=== PATIENT | male | born 1970 | race Caucasian/White ===

== ENCOUNTER 2016-08-12 11:59 | Emergency (ER) | payer BC ==
[2016-08-12 12:53] VITALS: BP 159/86
--- NOTE | 2016-08-12 13:15 | UC ---
Abdominal Pain Male HPI - HPI Summary HPI Summary: Nausea, intestinal cramping, chills, achiness starting yesterday. No vomiting or diarrhea. Generalized abdominal pain. - History of Current Complaint Chief Complaint: UCGI Stated Complaint: FLU SYMPTOMS Time Seen by Provider: 08/12/16 12:53 Hx Obtained From: Patient Onset/Duration: Gradual Onset, Lasting Hours Timing: Constant Severity Initially: Mild Severity Currently: Moderate Location: Diffuse Radiates: No Character: Cramping Aggravating Factor(s):: Food, Movement Alleviating Factor(s): Rest Associated Signs And Symptoms: Positive: Decreased Appetite, Nausea. Negative: Back Pain, Constipation, Urinary Symptoms, Vomiting, Diarrhea - Allergies/Home Medications Allergies/Adverse Reactions: Allergies Allergy/AdvReac Type Severity Reaction Status Date / Time No Known Allergies Allergy Verified 08/12/16 12:47 PMH/Surg Hx/FS Hx/Imm Hx Endocrine History Of: Denies: Diabetes, Thyroid Disease Cardiovascular History Of: Denies: Cardiac Disorders, Hypertension Respiratory History Of: Denies: COPD, Asthma GI/ History Of: Denies: Ulcer - Surgical History Surgical History: Yes Surgery Procedure, Year, and Place: left arm fracture that was repaired surgically - Family History Known Family History: Positive: Cardiac Disease - Social History Alcohol Use: None Substance Use Type: None Smoking Status (MU): Former Smoker Type: Cigarettes Amount Used/How Often: 1/2 PPD Length of Time of Smoking/Using Tobacco: 24 Years Have You Smoked in the Last Year: No When Did the Patient Quit Smoking/Using Tobacco: ~2014 Household Exposure Type: Cigarettes - Immunization History Most Recent Influenza Vaccination: Not the Season Review of Systems Constitutional: Negative Skin: Negative Eyes: Negative ENT: Negative Respiratory: Negative Cardiovascular: Negative Gastrointestinal: Abdominal Pain Genitourinary: Negative Motor: Negative Neurovascular: Negative Musculoskeletal: Negative Neurological: Negative Psychological: Negative All Other Systems Reviewed And Are Negative: Yes Physical Exam Triage Information Reviewed: Yes Appearance: Well-Appearing, No Pain Distress, Obese Vital Signs: Initial Vital Signs Temp 99.5 F 08/12/16 12:48 Pulse 100 08/12/16 12:48 Resp 18 08/12/16 12:48 BP 159/86 08/12/16 12:48 Pulse Ox 100 08/12/16 12:48 Vital Signs Reviewed: Yes Eye Exam: Normal Eyes: Positive: Conjunctiva Clear ENT Exam: Normal ENT: Positive: Normal ENT inspection, Hearing grossly normal, Pharynx normal, TMs normal Dental Exam: Normal Neck exam: Normal Neck: Positive: Supple, Nontender, No Lymphadenopathy Respiratory Exam: Normal Respiratory: Positive: Chest non-tender, Lungs clear, Normal breath sounds, No respiratory distress, No accessory muscle use Cardiovascular Exam: Normal Cardiovascular: Positive: RRR, No Murmur Abdomen Description: Positive: No Organomegaly, Soft, Other: - mild diffuse tenderness, no focal tenderness. Negative: Bruit, CVA Tenderness (R), CVA Tenderness (L) Musculoskeletal Exam: Normal Neurological Exam: Normal Psychological Exam: Normal Skin Exam: Normal Abd Pain Male Course/Dx - Differential Dx/Clinical Impression Provider Diagnoses: acute gastroenteritis Discharge - Discharge Plan Condition: Stable Disposition: HOME Prescriptions: Ondansetron ODT TAB* [Zofran Odt TAB*] 4 mg PO Q6H PRN #8 tab.odt PRN Reason: Nausea Patient Education Materials: Gastroenteritis (ED) Forms: *Work Release Referrals: Cecilio Briones MD [Primary Care Provider] - If Needed Additional Instructions: Call or return if you have vomiting longer than 3 days, diarrhea (more than 4 times per day) longer than 5 days, blood in vomit or stool, or if you develop worsening abdominal pains.
== END 2016-08-12 13:13 | disposition home or self-care (01) ==
LOC: UCCORT 11:59
DX: K52.9 Noninfective gastroenteritis and colitis, unspecified (principal); F17.210 Nicotine dependence, cigarettes, uncomplicated
CPT/HCPCS: 99212; G0463

== ENCOUNTER 2017-05-02 14:42 | Emergency (ER) | payer BC, OTHER ==
--- NOTE | 2017-05-02 14:52 | UC ---
Lower Extremity/Ankle HPI - HPI Summary HPI Summary: 46 YEAR OLD FEMALE PRESENTS WITH COMPLAINS OF RIGHT CALF PAIN/SWELLING/ ECHYMOSIS. I WILL SEND HIM TO ER TO RULE OUT DVT/COMPARTMENT SYNDROME/ACHILLES TEAR. - History of Current Complaint Stated Complaint: RIGHT LEG INJURY WC Time Seen by Provider: 05/02/17 14:51 Hx Obtained From: Patient Onset/Duration: Sudden Onset Severity Initially: Moderate Severity Currently: Moderate Pain Scale Used: 0-10 Numeric - 10 - Allergies/Home Medications Allergies/Adverse Reactions: Allergies Allergy/AdvReac Type Severity Reaction Status Date / Time No Known Allergies Allergy Verified 05/02/17 14:55 Home Medications: Home Medications NK [No Home Medications Reported] 05/02/17 [History Confirmed 05/02/17] PMH/Surg Hx/FS Hx/Imm Hx Previously Healthy: Yes - Surgical History Surgical History: Yes Surgery Procedure, Year, and Place: left arm fracture that was repaired surgically - Family History Known Family History: Positive: Cardiac Disease - Social History Alcohol Use: None Substance Use Type: None Smoking Status (MU): Former Smoker Type: Cigarettes Amount Used/How Often: 1/2 PPD Length of Time of Smoking/Using Tobacco: 24 Years Have You Smoked in the Last Year: No When Did the Patient Quit Smoking/Using Tobacco: ~2013 Household Exposure Type: Cigarettes - Immunization History Most Recent Influenza Vaccination: Not the 2015/2016 Season Review of Systems Constitutional: Negative Skin: Negative Eyes: Negative ENT: Negative Respiratory: Negative Cardiovascular: Negative Gastrointestinal: Negative Genitourinary: Negative Motor: Negative Neurovascular: Negative Musculoskeletal: Decreased ROM, Other: - RIGHT CALF PAIN Neurological: Negative Psychological: Negative All Other Systems Reviewed And Are Negative: Yes Physical Exam Triage Information Reviewed: Yes Vital Signs Reviewed: Yes Eye Exam: Normal ENT Exam: Normal Dental Exam: Normal Neck exam: Normal Neck: Positive: 1 Respiratory Exam: Normal Cardiovascular Exam: Normal Abdominal Exam: Normal Musculoskeletal: Positive: Strength Limited @, ROM Limited @, Other: - RIGHT CALF PAIN Neurological Exam: Normal Psychological Exam: Normal Skin Exam: Normal Lower Extremity Course/Dx - Differential Dx/Diagnosis Provider Diagnoses: RIGHT CALF PAIN/SWELLING/BRUISING Discharge - Discharge Plan Condition: Stable Disposition: HOME Patient Education Materials: Achilles Tendon Rupture (ED), Leg Pain (ED) Referrals: Cecilio Briones MD [Primary Care Provider] - Additional Instructions: PLEASE GO TO ER FOR SEVERE RIGHT CALF SWELLING.
[2017-05-02 14:55] VITALS: BP 147/89
--- NOTE | 2017-05-02 17:36 | RAD ---
INDICATION: Right ankle pain. TECHNIQUE: 3 views of the right ankle were obtained. FINDINGS: The bones are in normal alignment. No fracture is seen. Joint spaces appear maintained. IMPRESSION: NO EVIDENCE FOR FRACTURE.
--- NOTE | 2017-05-02 17:37 | RAD ---
INDICATION: Right lower leg injury. TECHNIQUE: 2 views of the right lower leg were obtained. FINDINGS: The bones are normal alignment. No fracture is seen. IMPRESSION: NO EVIDENCE OF FRACTURE.
== END 2017-05-02 15:25 | disposition home or self-care (01) ==
LOC: UCCORT 14:42
DX: S80.11XA Contusion of right lower leg, initial encounter (principal); M79.89 Other specified soft tissue disorders; M79.661 Pain in right lower leg; X58.XXXA Exposure to other specified factors, initial encounter; Y93.9 Activity, unspecified; Y92.89 Other specified places as the place of occurrence of the external cause; Y99.0 Civilian activity done for income or pay; Z87.891 Personal history of nicotine dependence
CPT/HCPCS: 99212; G0463

== ENCOUNTER 2017-05-02 19:05 | Observation (INO) | payer SELFPAY ==
[2017-05-02] MEDS ORDERED: oxyCODONE/Acetamin 5/325 MG* TAB PO ONE (20:22)
--- NOTE | 2017-05-02 21:44 | RAD ---
INDICATION: Right calf swelling evaluate for muscle tear. COMPARISON: Comparison is made with a prior x-ray study of the right lower leg of the same date. TECHNIQUE: Multiple real-time images of the right calf were obtained. FINDINGS: There is a large hypoechoic area in the posterior calf in the deep soft tissues deep to the calf muscle. This measures 15.7 x 6.2 x 3.5 cm and would be most consistent with a large hematoma. IMPRESSION: FINDINGS MOST CONSISTENT WITH A LARGE HEMATOMA IN THE SOFT TISSUES IN THE POSTERIOR CALF DESCRIBED.
[2017-05-02 22:52] LABS: Hematocrit 43 % (42-52); Hemoglobin 14.5 g/dl (14.0-18.0); Mean Corpuscular HGB Conc 34 g/dl (31-36); Mean Corpuscular Hemoglobin 28 pg (27-31); Mean Corpuscular Volume 83 fL (80-94); Mean Platelet Volume 9 um3 (7.4-10.4); Red Blood Count 5.15 10^6/ul (4.0-5.4); Red Cell Distribution Width 13 % (10.5-15); White Blood Count 13.6 10^3/ul (3.5-10.8)
[2017-05-02] MEDS ORDERED: ceFAZolin 2 GM PREMIX (*) 50 ML IVPB ONE (22:59)
[2017-05-02 23:02] LABS: Albumin 4.1 g/dL (3.2-5.2); BUN/Creatinine Ratio 24.1 (8-20); EGFR African American 127.2 (>60); EGFR Non-African American 98.9 (>60); Globulin 2.7 g/dL (2-4); Potassium 3.7 mmol/L (3.5-5.0); Total Bilirubin 0.6 mg/dL (0.2-1.0); Total Protein 6.8 g/dL (6.4-8.9)
[2017-05-02] MEDS ORDERED: Bupivacaine 0.5% SDV PF* 30 ML VIAL ONE (23:08)
[2017-05-02] MEDS ORDERED: fentaNYL* 50 MCG/ML 2 ML VIAL (100 MCG VIAL) ONE ×2 (23:14→23:44)
[2017-05-02] MEDS ORDERED: Midazolam* 1 MG/ML 2 ML VIAL (2 MG) ONE (23:14)
[2017-05-02] MEDS ORDERED: Ondansetron INJ* 2 MG/ML VIAL ONE (23:31)
[2017-05-02] MEDS ORDERED: Dexamethasone IV* 4 MG/ML 1 ML (4 MG) ONE (23:31)
[2017-05-02] MEDS ORDERED: Propofol* 10 MG/ML 20 ML BTL IV PUSH ONE ×2 (23:31→23:54)
[2017-05-02] MEDS ORDERED: Succinylcholine* 20 MG/ML 10 ML VIAL ONE (23:31)
[2017-05-02] MEDS ORDERED: Lidocaine 2% PF * 5 ML VIAL ONE (23:31)
[2017-05-03] MEDS ORDERED: Levalbuterol HFA INHALER* 1 PUFF MDI ONE (00:15)
[2017-05-03] MEDS ORDERED: Morphine INJ* 2 MG/ML 1 ML CARPUJECT IV PRN (00:17)
[2017-05-03] MEDS ORDERED: oxyCODONE/Acetamin 5/325 MG* TAB PO PRN (00:17)
[2017-05-03] MEDS ORDERED: diPHENhydraMINE IV* 50 MG/ML 1 ml VIAL (BENADRYL) IV PRN (00:17)
[2017-05-03] MEDS ORDERED: Acetaminophen TAB* 325 MG PO PRN ×2 (00:17→00:21)
[2017-05-03] MEDS ORDERED: Ibuprofen TAB* 600 MG PO PRN (00:21)
[2017-05-03] MEDS ORDERED: HYDROmorphone INJ* 1 MG/ML CARPUJECT SYRINGE IV PRN (00:21)
[2017-05-03] MEDS ORDERED: fentaNYL* 50 MCG/ML 2 ML VIAL (100 MCG VIAL) ONE (00:32)
[2017-05-03] MEDS: fentaNYL* 50 MCG/ML 2 ML VIAL (100 MCG VIAL) IV PRN ×4 (00:33→00:57)
[2017-05-03] MEDS ORDERED: Ibuprofen TAB* 600 MG ONE (01:16)
--- NOTE | 2017-05-03 01:34 | ED ---
Lower Extremity - HPI Summary HPI Summary: 46 y/o male at 2PM was pushing maria esther up ramp, felt snap sensation at posterior ankle that radiated up to posterior calf. Immediate pain, unable to walk due to pain, was seen at , sent to ER for DVT/ compartment syndrome. Patient refused to walk due to pain, states swelling/ pain has increased. vicodin at ~ 3PM, took edge off pain however pain continues and is increasing. No prior episodes, no prior injuries. no h/o dvt blood clots. - History of Current Complaint Chief Complaint: EDExtremityLower Stated Complaint: RT LEG PAIN Time Seen by Provider: 05/02/17 20:01 Hx Obtained From: Patient Mechanism Of Injury: Other - no injury Onset of Pain: Immediate, Hours, Post Accident Onset/Duration: Hours Severity Initially: Severe Severity Currently: Severe Pain Intensity: 7 Pain Scale Used: 0-10 Numeric - Allergies/Home Medications Allergies/Adverse Reactions: Allergies Allergy/AdvReac Type Severity Reaction Status Date / Time No Known Allergies Allergy Verified 05/02/17 19:20 PMH/Surg Hx/FS Hx/Imm Hx Previously Healthy: Yes Endocrine/Hematology History: Denies: Hx Diabetes, Hx Thyroid Disease Cardiovascular History: Denies: Hx Hypertension Respiratory History: Denies: Hx Asthma, Hx Chronic Obstructive Pulmonary Disease (COPD) GI History: Denies: Hx Ulcer - Surgical History Surgery Procedure, Year, and Place: left arm fracture that was repaired surgically - Immunization History Immunizations Up to Date: Yes Infectious Disease History: No Infectious Disease History: Denies: Hx Hepatitis, Hx Human Immunodeficiency Virus (HIV), Traveled Outside the [place] in Last 30 Days - Family History Known Family History: Positive: Cardiac Disease - Social History Alcohol Use: None Substance Use Type: Reports: None Smoking Status (MU): Light Every Day Tobacco Smoker Type: Cigarettes Amount Used/How Often: 1/2 PPD Length of Time of Smoking/Using Tobacco: 24 Years Have You Smoked in the Last Year: No Review of Systems Positive: Arthralgia, Myalgia, Decreased ROM, Edema - RIGHT calf All Other Systems Reviewed And Are Negative: Yes Physical Exam Triage Information Reviewed: Yes Vital Signs On Initial Exam: Initial Vitals Temp Pulse Resp BP Pulse Ox 97.8 F 74 16 141/76 97 05/02/17 19:15 05/02/17 19:15 05/02/17 19:15 05/02/17 19:15 05/02/17 19:15 Vital Signs Reviewed: Yes Appearance: Positive: Well-Appearing, Well-Nourished, Pain Distress - mild at rest, severe with movement of right leg Skin: Positive: Warm, Other - right foot slightly pale when compared with Left foot, PT/ DP 2+ b/l, Right foot slightly cooler than left foot. passive ROM of great toe, ankle has extreme pain in posterior calf. non-tender over achillies , neg achilies test. + firm, hard, woody feeling of Right calf. left soft, nontender. no tenderness over right knee. Head/Face: Positive: Normal Head/Face Inspection Musculoskeletal: Positive: Edema Right - sevre edema right calf.. Negative: Strength/ROM Intact - decreased ROM of R ankle due to radiating pain to calf. Neurological: Positive: Normal, Sensory/Motor Intact, Alert, Oriented to Person Place, Time, CN Intact II-III, Abnormal Gait - refuses to walk due to pain Psychiatric: Positive: Normal AVPU Assessment: Alert - [place] Coma Scale Coma Scale Total: 15 Diagnostics - Vital Signs Vital Signs Temp Pulse Resp BP Pulse Ox 05/03/17 01:15 78 18 141/76 100 05/03/17 01:00 90 20 147/84 100 05/03/17 00:57 20 05/03/17 00:45 80 20 150/89 99 05/03/17 00:40 83 20 134/77 100 05/03/17 00:35 84 20 103/72 99 05/03/17 00:33 20 05/03/17 00:30 97.5 F 85 20 169/93 92 05/02/17 20:31 20 05/02/17 19:15 97.8 F 74 16 141/76 97 - Laboratory Lab Results: Lab Results 05/02/17 05/02/17 05/02/17 Range/Units 22:39 22:39 22:39 WBC 13.6 H (3.5-10.8) 10^3/ul RBC 5.15 (4.0-5.4) 10^6/ul Hgb 14.5 (14.0-18.0) g/dl Hct 43 (42-52) % MCV 83 (80-94) fL MCH 28 (27-31) pg MCHC 34 (31-36) g/dl RDW 13 (10.5-15) % Plt Count 264 (150-450) 10^3/ul MPV 9 (7.4-10.4) um3 Neut % (Auto) 62.6 (38-83) % Lymph % (Auto) 28.4 (25-47) % [place] % (Auto) 6.8 (1-9) % Eos % (Auto) 1.4 (0-6) % Baso % (Auto) 0.8 (0-2) % Absolute Neuts (auto) 8.5 H (1.5-7.7) 10^3/ul Absolute Lymphs (auto) 3.9 (1.0-4.8) 10^3/ul Absolute Monos (auto) 0.9 H (0-0.8) 10^3/ul Absolute Eos (auto) 0.2 (0-0.6) 10^3/ul Absolute Basos (auto) 0.1 (0-0.2) 10^3/ul Absolute Nucleated RBC 0 10^3/ul Nucleated RBC % 0 INR (Anticoag Therapy) 0.92 (0.89-1.11) APTT 30.2 (26.0-36.3) seconds Sodium 135 (133-145) mmol/L Potassium 3.7 (3.5-5.0) mmol/L Chloride 102 (101-111) mmol/L Carbon Dioxide 26 (22-32) mmol/L Anion Gap 7 (2-11) mmol/L BUN 20 (6-24) mg/dL Creatinine 0.83 (0.67-1.17) mg/dL Est GFR ( Amer) 127.2 (>60) Est GFR (Non-Af Amer) 98.9 (>60) BUN/Creatinine Ratio 24.1 H (8-20) Glucose 250 H (70-100) mg/dL Calcium 9.0 (8.6-10.3) mg/dL Total Bilirubin 0.60 (0.2-1.0) mg/dL AST 15 (13-39) U/L ALT 16 (7-52) U/L Alkaline Phosphatase 49 (34-104) U/L Total Protein 6.8 (6.4-8.9) g/dL Albumin 4.1 (3.2-5.2) g/dL Globulin 2.7 (2-4) g/dL Albumin/Globulin Ratio 1.5 (1-3) Result Diagrams: 05/02/17 22:39 05/02/17 22:39 Lab Statement: Any lab studies that have been ordered have been reviewed, and results considered in the medical decision making process. Lower Extremity Course/Dx - Course Course Of Treatment: consult to orthopedics/ Dr. Sarmiento placed, patient taken to OR for fasciotomy. radiograph neg for fx. - Diagnoses Differential Diagnosis/HQI/PQRI: Positive: Cellulitis, Compartment Syndrome Provider Diagnoses: Compartment syndrome of right lower extremity Discharge - Discharge Plan Condition: Guarded Disposition: ADMITTED TO [facility]
[2017-05-03] MEDS ORDERED: oxyCODONE/Acetamin 5/325 MG* TAB ONE (02:11)
[2017-05-03] MEDS: oxyCODONE/Acetamin 5/325 MG* TAB PO PRN ×3 (02:16→10:45)
[2017-05-03] MEDS ORDERED: ceFAZolin 1 GM VIAL(*) 1 GM in NS 0.9% 50 ML* 50 ML IVPB SCH (08:00)
[2017-05-03 09:08] VITALS: BP 149/86
--- NOTE | 2017-05-03 09:20 | PN ---
Progress Note - Progress Note Date of Service: 05/03/17 SOAP: Subjective: POD #0 Right leg fasciotomy for acute compartment syndrome. Pt doing well, pain controlled with Percocet. Denies C/P, SOB, f/c. Denies paresthesias or numbness in foot Objective: Vitals: Temp Pulse Resp BP Pulse Ox 97.7 F 99 17 149/86 97 05/03/17 07:34 05/03/17 07:34 05/03/17 07:34 05/03/17 07:34 05/03/17 08:30 Gen: A&Ox3, NAD at rest sitting in bed RLE: Dressing C/D/I, calf soft with diffuse ttp. +f/e at ankle and MTPs, DP 2+, sensation intact Assessment: POD #0 Right leg fasciotomy Plan: D/C home today F/u with Dr. Sarmiento in office Friday
--- NOTE | 2017-05-03 12:03 | OP ---
DATE OF OPERATION: 05/02/17 - ROOM #349 DATE OF : 66 SURGEON: Debbie Sarmiento MD. SCRAP WHEELER: SHERIF Ott ANESTHESIOLOGIST: Shy Ceron MD ANESTHESIA: General. PRE-OP DIAGNOSIS: Compartment syndrome on the right leg. POST-OP DIAGNOSIS: Compartment syndrome on the right leg. OPERATIVE PROCEDURE: Compartment release of right leg. ESTIMATED BLOOD LOSS: Zero. TOURNIQUET TIME: 19 minutes. INDICATIONS FOR PROCEDURE: Royce is a 46-year-old man who injured his right leg today. He has had increasing pain, swelling and tenderness in his right leg. X-ray was negative for fracture. Ultrasound showed a large hematoma. Clinically, he has a compartment syndrome with rock-hard compartments posterior , anterior and lateral. He presents for compartment release of the right leg. DESCRIPTION OF PROCEDURE: The patient was brought to the operating room, was given a general anesthetic and placed in a supine position on the operating table with a tourniquet around his right thigh. The skin of his right lower extremity was prepped and draped in the usual sterile fashion. The lower extremity was exsanguinated and the tourniquet elevated to 250 mmHg. A lateral longitudinal incision was made to gain access to the anterior and lateral compartments. These were both released and there was some bulging in the muscle , but the muscle was in excellent condition and contractile. Next, a medial longitudinal incision was made over the superficial posterior compartment and there was a very very large hematoma, which was evacuated. The muscle again was in good condition, contractile and we could see that the gastroc tendon distally had ruptured and retracted proximally. The deep posterior compartment was then released along the posterior aspect of the tibia. The wounds were copiously irrigated with saline. Hemostasis was achieved and the wounds were loosely closed with vessel loop and rosalino. The wounds were dressed with Xeroform, 4x4, ABD, Webril, and an Sameer wrap. The patient tolerated the procedure well and was brought to the recovery room in good condition. [id number]/[facility] #: [id number] [facility]
--- NOTE | 2017-05-03 12:44 | DS ---
AMENDED REPORT NOW INCLUDES COSIGNER DESIGNATION - ESIGNED BEFORE ADJUSTMENT DISCHARGE SUMMARY: DATE OF ADMISSION: 05/03/17 DATE OF DISCHARGE: 05/03/17 PROVIDER: Debbie Sarmiento MD * (DICTATED BY SHERIF MOLINA) ADMITTING DIAGNOSIS: Acute compartment syndrome of the right lower extremity. DISCHARGE DIAGNOSIS: Acute compartment syndrome of the right lower extremity, status post right leg fasciotomy. HISTORY OF PRESENT ILLNESS: Mr. Cao is a 46-year-old male who presented to [facility] Emergency Room on 05/02/17 with complaints of increasing right lower leg pain after he felt a pop in his calf while pushing a heavy cart up a ramp. He states that the pain and swelling steadily increased throughout the evening. He denied any paresthesias or numbness in the foot; however, he stated that the pain was out of control. Dr. Sarmiento was consulted on in the emergency room and the patient was found to have acute compartment syndrome. HOSPITAL COURSE: Dr. Sarmiento consulted on the patient in the emergency room. He was found to have acute compartment syndrome. He was taken immediately to the operating room and underwent a fasciotomy of the right lower leg. He was found to have a large hematoma and some tearing of the muscle fibers in the posterior calf. This was evacuated and irrigated thoroughly and partially closed using vascular loops and rosalino. A bulky dressing was applied over the patient's leg and he was taken to the recovery room. He was then transferred to the short -stay surgical unit in stable condition. He has been weightbearing as tolerated on the right lower extremity. He has been elevating frequently. He has had some pain; however, has been well controlled with oral pain medications only. He was found stable for discharge at that time. DISCHARGE INSTRUCTIONS: The patient is to elevate the leg frequently. He is to keep his dressing clean, dry and intact until followup with Dr. Sarmiento on 05/05/17. He was encouraged to move the foot frequently as well. DISCHARGE MEDICATIONS: He will continue Percocet 5/325 mg one to two tabs q.4 to 6 hours p.r.n. pain. He may also use ibuprofen 600 mg p.o. q.6 hours p.r.n. pain. He was encouraged to use Colace 100 mg p.o. b.i.d. over the counter as needed for constipation related to the stool softener. The patient was advised to call the office phone number with any questions or concerns and go directly to the emergency room with any chest pain, shortness of breath, fever greater than 101.5, numbness or tingling in his foot or any discoloration. All of his questions were answered to his full satisfaction. We will follow up with the patient in the office after discharge. SHERIF MOLINA [id number]/[facility] #: [id number] LASHONDA
== END 2017-05-03 11:07 | disposition home or self-care (01) ==
LOC: ED 19:05 → OR 22:38 → SSU 05-03 01:23
PROVIDERS: ADMIT Orthopaedic Surgery; ATTEND Orthopaedic Surgery
DX: T79.6XXA Traumatic ischemia of muscle, initial encounter (principal); X50.0XXA Overexertion from strenuous movement or load, initial encounter; Y92.89 Other specified places as the place of occurrence of the external cause; F17.210 Nicotine dependence, cigarettes, uncomplicated; K21.9 Gastro-esophageal reflux disease without esophagitis; E66.9 Obesity, unspecified; M79.604 Pain in right leg
CPT/HCPCS: 36415; 80053; 85025; 85610; 85730; 94760; 96365; 99282; A9270-GY; G0378; J0330; J0690; J1100; J2250; J2405; J2704; J3010

== ENCOUNTER 2017-07-17 18:50 | Emergency (ER) | payer BC, OTHER ==
[2017-07-17 19:46] VITALS: BP 167/91
--- NOTE | 2017-07-17 20:17 | UC ---
FLU HPI - HPI Summary HPI Summary: 46 year old male with fever and chills. c/o cold chills, body aches, head and neck ache. He has had a fever of 101.9. He does have some intermittent epigastric pain that feels like a burning, cramping sensation. He denies cough, cold sx. he did have skin bx on left front neck last week. He just stopped a weeks worth of Doxy yesterday. (before that he saw Dr Rosa for the same thing and he took a course of cefaclor). Several weeks ago he had surgery on his right leg, the incision looks good. Has had right leg surgery 04/30/17 and needed fasciotomy . no cough, no congestion, no headache, no arm numbness, no n/ v/d present. no NSAIDs per patient. also after getting punch biopsy has noticed some neck stiffness but not anywhere near the punch bx. has been to PT for the leg and desires to start for the neck . no neck trauma. [ End ] - History of Current Complaint Chief Complaint: UCGeneralIllness Stated Complaint: FLU LIKE SYMPTOMS Time Seen by Provider: 07/17/17 19:38 Hx Obtained From: Patient, Family/Bus Cleaner Onset/Duration: Gradual Onset Severity Currently: Mild Severity Initially: Moderate Associated Signs & Symptoms: Positive: Fever, T Max - 101.9, Myalgia Related Hx: Possible Flu/Infectious Exposure - Allergy/Home Medications Allergies/Adverse Reactions: Allergies Allergy/AdvReac Type Severity Reaction Status Date / Time No Known Allergies Allergy Verified 07/17/17 19:46 Home Medications: Home Medications Gabapentin CAP(*) [Neurontin 300 CAP(*)] 300 mg PO TID 07/17/17 [History Confirmed 07/17/17] PMH/Surg Hx/FS Hx/Imm Hx Previously Healthy: Yes - Surgical History Surgical History: Yes Surgery Procedure, Year, and Place: left arm fracture that was repaired surgically. Right lower leg fasciotomy - Family History Known Family History: Positive: Cardiac Disease - Social History Occupation: Employed Full-time Alcohol Use: Occasionally Substance Use Type: None Smoking Status (MU): Light Every Day Tobacco Smoker Type: Cigarettes Amount Used/How Often: 1/2 PPD Length of Time of Smoking/Using Tobacco: 24 Years Have You Smoked in the Last Year: No When Did the Patient Quit Smoking/Using Tobacco: ~2013 Household Exposure Type: Cigarettes - Immunization History Most Recent Influenza Vaccination: Not the 2015/2016 Season Most Recent Pneumonia Vaccination: N/A Review of Systems Constitutional: Fever, Chills, Fatigue Musculoskeletal: Arthralgia Is Patient Immunocompromised?: No All Other Systems Reviewed And Are Negative: Yes Physical Exam Triage Information Reviewed: Yes Appearance: Well-Appearing, No Pain Distress, Well-Nourished Vital Signs: Initial Vital Signs Temp 97.6 F 07/17/17 19:37 Pulse 107 07/17/17 19:37 Resp 14 07/17/17 19:37 BP 167/91 07/17/17 19:37 Pulse Ox 96 07/17/17 19:37 Vital Signs Reviewed: Yes Eye Exam: Normal ENT Exam: Normal Dental Exam: Normal Neck exam: Normal Respiratory Exam: Normal Cardiovascular Exam: Normal Abdominal Exam: Normal Abdomen Description: Positive: Soft, Other: - mild epigastric tenderness to palpation .. Negative: Bruit, CVA Tenderness (R), CVA Tenderness (L), Distended , Guarding, Hernia @, Hepatomegaly, McBurney's Point Tenderness, Peritoneal Signs, Pulsatile Mass, Splenomegaly Bowel Sounds: Positive: Present Musculoskeletal Exam: Normal Musculoskeletal: Positive: Strength Intact, ROM Intact - neg kernig. neg brud. FROM C spine. Neurological Exam: Normal Psychological Exam: Normal Skin Exam: Normal Skin: Positive: Other - healed wound right leg and left lateral neck with 1 suture present with round red raised 1x1 cm Flu Course/Dx - Course Course Of Treatment: finished doxy yesterday and fever today. restart doxy and f /u with PCP. flu neg. suture removed and no concerns and no bleeding. wound well approximated -- restart doxy at this time with the history of complications in the past few months . of note his neck has been more tight and likely from sleeping differently as he had the punch biopsy on the neck and desires PT for the neck. no loss of ROM. No trauma. no arm numbness. - Differential Dx/Diagnosis Provider Diagnoses: flu like illness , fever, neck pain Discharge - Discharge Plan Condition: Good Disposition: HOME Prescriptions: Doxycycline (Monohydrate) [Doxycycline Monohydrate] 100 mg PO BID #10 cap Patient Education Materials: Fever in Adults (ED) Referrals: Cecilio Briones MD [Primary Care Provider] - 4 Days Additional Instructions: Please start probiotics with the antibiotics. Please start PT for the neck pain. If fever worsens go to ED.
[2017-07-17] MEDS ORDERED: Doxycycline (NF) 100 MG TAB PO ONE (20:47)
[2017-07-17] MEDS ORDERED: DOXYcycline CAP(*) 100 MG PO ONE (20:52)
== END 2017-07-17 21:01 | disposition home or self-care (01) ==
LOC: UCCORT 18:50
DX: J11.1 Influenza due to unidentified influenza virus with other respiratory manifestations (principal); M54.2 Cervicalgia; F17.210 Nicotine dependence, cigarettes, uncomplicated
CPT/HCPCS: 87502; 99212; A9270-GY; G0463

== ENCOUNTER 2017-11-24 11:13 | Day surgery (SDC) | payer OTHER ==
[~2017-11-24 11:13] MED LIST: Buffered Lidocaine 0.9% SYRIN* 5 ML/SYR SYRINGE INTRADERM ONE; DiMENhydriNATE IV* 50 MG/ML VIAL IV PUSH PRN; Famotidine TAB* 20 MG PO ONE; Naloxone* 0.4 MG/ML 1 ML VIAL IV PRN; PROCHLORPERAZINE INJ 5 MG/ML 2 ML VIAL IV PRN; Scopolamine 1.5 mg* PATCH TRANSDERM PRN; fentaNYL* 50 MCG/ML 2 ML VIAL (100 MCG VIAL) IV PRN
[2017-11-24] MEDS ORDERED: Famotidine TAB* 20 MG ONE (11:28)
[2017-11-24] MEDS ORDERED: Buffered Lidocaine 0.9% SYRIN* 5 ML/SYR SYRINGE ONE (11:28)
[2017-11-24] MEDS ORDERED: ceFAZolin 2 GM PREMIX (*) 2 GM/50 ML BAG IVPB ONE (11:28)
[2017-11-24] MEDS ORDERED: fentaNYL* 50 MCG/ML 2 ML VIAL (100 MCG VIAL) ONE (11:30)
[2017-11-24] MEDS ORDERED: Midazolam* 1 MG/ML 5 ML VIAL (5 MG) ONE (11:31)
[2017-11-24] MEDS ORDERED: Bupivacaine 0.25% SDV* 30 ML ONE (12:20)
[2017-11-24] MEDS ORDERED: Morphine INJ* 10 MG/ML 1 ML CARPUJECT ONE ×2 (12:53→13:47)
[2017-11-24] MEDS ORDERED: Propofol* 10 MG/ML 20 ML BTL IV PUSH ONE (13:08)
[2017-11-24] MEDS ORDERED: Lidocaine 2% PF * 5 ML VIAL ONE (13:08)
[2017-11-24] MEDS ORDERED: Labetalol IV* 5 MG/ML 20 ML VIAL ONE (13:08)
[2017-11-24] MEDS ORDERED: Ketorolac INJ* 30 MG/ML 1 ML VIAL ONE (13:08)
[2017-11-24] MEDS ORDERED: Ondansetron INJ* 2 MG/ML VIAL ONE (13:08)
[2017-11-24] MEDS ORDERED: hydrALAZINE IV* 20 MG/ML VIAL ONE (13:08)
[2017-11-24] MEDS ORDERED: Dexamethasone IV* 4 MG/ML 1 ML (4 MG) ONE (13:08)
[2017-11-24] MEDS: Morphine INJ* 2 MG/ML 1 ML CARPUJECT IV PRN ×4 (13:50→14:25)
[2017-11-24] MEDS ORDERED: oxyCODONE/Acetamin 5/325 MG* TAB ONE (14:20)
[2017-11-24] MEDS: oxyCODONE/Acetamin 5/325 MG* TAB PO PRN ×2 (14:22→14:23)
[2017-11-24 15:29] VITALS: BP 140/78
--- NOTE | 2017-11-24 22:46 | OP ---
OPERATIVE REPORT: DATE OF OPERATION: 11/24/17 - SDS DATE OF : 66 SURGEON: Aidan Phillip MD LINER MAN: Kamila Hinds PA-C ANESTHESIOLOGIST: Jatinder Nicole MD ANESTHESIA: General. 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 POST-OP DIAGNOSIS: Iatrogenic right saphenous neuroma from previous fasciotomy , right calf. OPERATIVE PROCEDURE: Excision of saphenous nerve and burial deep to the medial head of the gastroc. DESCRIPTION OF PROCEDURE: The patient was taken to the operating room where we removed the previous thickened longitudinal fasciotomy scar that was approximately 10 cm in length. In the subcutaneous tissue just anterior to the fasciotomy, we identified the saphenous nerve, which was coursing just posterior to the large vein. The saphenous nerve disappeared distally into significant scar tissue along the anterior aspect of the previous surgical site. We transected it proximally, tying it off with a 3-0 Ethibond suture ligature and then both ends of the Ethibond passed on Arjun needles to a posterior exit site just deep to the medial head of the gastroc. The 2 strands of Ethibond were tied over the skin externally. We then irrigated thoroughly closing with Vicryl and rosalino for the skin and a compression dressing applied. [id number]/[facility] #: [id number] [facility]
[2017-11-27] MEDS ORDERED: Scopolamine PATCH Remove* 1 NOTE MISC PATCH OFF ONE (06:15)
== END 2017-11-24 15:38 | disposition home or self-care (01) ==
LOC: OR 11:13
PROVIDERS: ATTEND Orthopaedic Surgery
DX: G57.81 Other specified mononeuropathies of right lower limb (principal); T79.A21D Traumatic compartment syndrome of right lower extremity, subsequent encounter; Z87.891 Personal history of nicotine dependence; K21.9 Gastro-esophageal reflux disease without esophagitis
CPT/HCPCS: 88300; 88304; A9270-GY; J0360; J0690; J1100; J1885; J2250; J2270; J2405; J2704; J3010

== ENCOUNTER 2018-01-14 07:48 | Emergency (ER) | payer BC, OTHER ==
[2018-01-14 08:01] VITALS: BP 155/90
--- NOTE | 2018-01-14 08:26 | UC ---
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 He was hunched over for several hours and then reached for something and felt a sudden pain. He has had straining and pain ever since. Prior injury 20 years ago with low back pain but generally he is well. No radiation down the leg. No numbness, weakness, saddle anesthesia or incontinence. - History of Current Complaint Chief Complaint: UCBackPain Stated Complaint: BACK PAIN Time Seen by Provider: 01/14/18 08:10 Hx Obtained From: Patient, Family/Qa Tester Onset/Duration: Gradual Onset, Lasting Hours Timing: Constant Severity Initially: Severe Severity Currently: Severe Pain Intensity: 8 Back Pain: Is Discrete @ - right lower back. Character: Aching, Throbbing, Spasmodic, Stiffness Aggravating Factor(s): Movement, Lifting, Bending, Walking Alleviating Factor(s): Rest, Position Associated Signs And Symptoms: Negative: Swelling, Redness, Bruising, Fever, Weakness, Numbness, Tingling, Abdominal Pain, Bladder Incontinence, Bowel Incontinence - Allergies/Home Medications Allergies/Adverse Reactions: Allergies Allergy/AdvReac Type Severity Reaction Status Date / Time No Known Allergies Allergy Verified 01/14/18 07:57 PMH/Surg Hx/FS Hx/Imm Hx Previously Healthy: No - right leg nerve damage and fasciotomy. - Surgical History Surgical History: Yes Surgery Procedure, Year, and Place: left arm fracture that was repaired surgically. Right lower leg fasciotomy. right leg nerve entrapment surgery - Family History Known Family History: Positive: Cardiac Disease - Social History Occupation: Disabled Lives: With Family Alcohol Use: Occasionally Substance Use Type: None Smoking Status (MU): Former Smoker Type: Cigarettes Amount Used/How Often: 1/2 PPD Length of Time of Smoking/Using Tobacco: 24 Years Have You Smoked in the Last Year: No When Did the Patient Quit Smoking/Using Tobacco: ~2013 Household Exposure Type: Cigarettes - Immunization History Most Recent Influenza Vaccination: Not the 2016/2016 Season Most Recent Pneumonia Vaccination: N/A Review of Systems Musculoskeletal: Decreased ROM, Myalgia All Other Systems Reviewed And Are Negative: Yes Physical Exam Triage Information Reviewed: Yes Appearance: Pain Distress - obvious pain and stiffness., Obese Vital Signs: Initial Vital Signs Temp 99.2 F 01/14/18 07:55 Pulse 88 01/14/18 07:55 Resp 17 01/14/18 07:55 BP 155/90 01/14/18 07:55 Pulse Ox 97 01/14/18 07:55 Vital Signs Reviewed: Yes Eyes: Positive: Conjunctiva Clear ENT: Positive: Normal ENT inspection Neck: Positive: Supple, Nontender, No Lymphadenopathy. Negative: Nuchal Rigidity Respiratory: Negative: Respiratory distress Cardiovascular: Positive: Brisk Capillary Refill Abdomen Description: Negative: Distended Musculoskeletal: Positive: ROM Limited @, Other: - right lower diffuse tenderness. Straight leg raise causes pain but radiation down the leg. Neurological: Positive: Alert, Muscle Tone Normal. Negative: Fatigued Psychological: Positive: Age Appropriate Behavior Skin: Negative: rashes Back Pain Course/Dx - Course Course Of Treatment: low back strain without signs of disc herniation or cord compression. - Differential Dx/Diagnosis Provider Diagnoses: low back strain. Discharge - Sign-Out/Discharge Documenting (check all that apply): Discharge/Admit/Transfer - Discharge Plan Condition: Good Disposition: HOME Prescriptions: Cyclobenzaprine TAB* [Flexeril 10 MG TAB*] 10 mg PO BID PRN #30 tab PRN Reason: Pain Naproxen [Naprosyn 500 mg tab] 500 mg PO BID PRN #20 tablet PRN Reason: Pain Patient Education Materials: Low Back Strain (ED), Back Pain (ED), Lower Back Exercises (ED) Referrals: Cecilio Briones MD [Primary Care Provider] - If Needed - Billing Disposition and Condition Condition: GOOD Disposition: Home
== END 2018-01-14 08:26 | disposition home or self-care (01) ==
LOC: UCCORT 07:48
DX: S39.012A Strain of muscle, fascia and tendon of lower back, initial encounter (principal); X50.9XXA Other and unspecified overexertion or strenuous movements or postures, initial encounter; Y93.89 Activity, other specified; Y92.89 Other specified places as the place of occurrence of the external cause; Z87.891 Personal history of nicotine dependence
CPT/HCPCS: 99212; G0463

== ENCOUNTER 2019-04-04 09:53 | Emergency (ER) | payer BC, OTHER ==
[2019-04-04 10:45] VITALS: BP 141/77
--- NOTE | 2019-04-04 11:03 | UC ---
Back Pain HPI - HPI Summary HPI Summary: About 6 day history of pain in the right flank area, begins in right low lumbar/ gluteal area with radiation to the right abdomen. No change in bowels, no nausea or vomiting. Pain is not affected by voiding or stool passage, is affected by movement and relieves with sitting with weight shifted to the left buttock. UA without blood. 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 He has not tried NSAID's. He has done a lot of physical activity, including moving furniture this week at his work as well as working on his vehicles. - History of Current Complaint Chief Complaint: UCGeneralIllness Stated Complaint: LOW BACK PAIN Time Seen by Provider: 04/04/19 10:54 Hx Obtained From: Patient Onset/Duration: Gradual Onset, Lasting Days - 6 Timing: Constant Severity Initially: Moderate Severity Currently: Moderate Pain Intensity: 7 Back Pain: Is Discrete @ - right low lumbar area, Radiates To - right flank Character: Dull, Aching Aggravating Factor(s): Movement, Lifting, Bending Alleviating Factor(s): Rest Associated Signs And Symptoms: Positive: Flank Pain. Negative: Bladder Incontinence, Bowel Incontinence - Risk Factors AAA Risk Factors: Negative TAD Risk Factors: Negative Cauda Equina Risk Factors: Negative - Allergies/Home Medications Allergies/Adverse Reactions: Allergies Allergy/AdvReac Type Severity Reaction Status Date / Time No Known Allergies Allergy Verified 04/04/19 10:38 Home Medications: Home Medications traMADol TAB* [Ultram*] 50 mg PO Q6HR PRN 04/04/19 [History Confirmed 04/04/19] PMH/Surg Hx/FS Hx/Imm Hx Previously Healthy: Yes - Surgical History Surgical History: Yes Surgery Procedure, Year, and Place: left arm fracture that was repaired surgically. Right lower leg fasciotomy. right leg nerve entrapment surgery - Family History Known Family History: Positive: Cardiac Disease, Diabetes - mother - Social History Occupation: Employed Full-time Lives: With Family Alcohol Use: None Substance Use Type: None Smoking Status (MU): Former Smoker Type: Cigarettes Amount Used/How Often: 1/2 PPD Length of Time of Smoking/Using Tobacco: 24 Years Have You Smoked in the Last Year: No When Did the Patient Quit Smoking/Using Tobacco: ~2013 Household Exposure Type: Cigarettes - Immunization History Most Recent Influenza Vaccination: Not the 2016/2016 Season Most Recent Pneumonia Vaccination: N/A Review of Systems All Other Systems Reviewed And Are Negative: Yes Constitutional: Positive: Negative Skin: Positive: Negative Eyes: Positive: Negative ENT: Positive: Negative Respiratory: Negative: Shortness Of Breath, Cough Cardiovascular: Negative: Palpitations, Chest Pain Gastrointestinal: Negative: Vomiting, Nausea Genitourinary: Negative: Dysuria, Hematuria, Frequency, Urgency Motor: Positive: Decreased ROM Neurovascular: Positive: Negative Musculoskeletal: Positive: Decreased ROM, Myalgia Neurological: Positive: Negative Psychological: Positive: Negative Is Patient Immunocompromised?: No Physical Exam Triage Information Reviewed: Yes Appearance: Well-Appearing, Pain Distress - mild to moderate., Obese Vital Signs: Initial Vital Signs Temp 99.1 F 04/04/19 10:39 Pulse 79 04/04/19 10:39 Resp 16 04/04/19 10:39 BP 141/77 04/04/19 10:39 Pulse Ox 97 04/04/19 10:39 ENT Exam: Normal ENT: Positive: Pharynx normal Neck: Positive: Supple, Nontender, No Lymphadenopathy Respiratory: Positive: Lungs clear, Normal breath sounds Cardiovascular: Positive: RRR, No Murmur Abdomen Description: Positive: No Organomegaly, Soft, Other: - mild tenderness in the right mid abdomen without guarding or rebound. Negative: CVA Tenderness (R), CVA Tenderness (L), Hepatomegaly, Splenomegaly Musculoskeletal Exam: Other - FF to 60 degrees with pain with extension, pain with lateral bending to the right No tenderness to palpation in the lumbar spine. Musculoskeletal: Positive: Strength Intact, ROM Limited @ - lumbar spine, Other : - SLR to 80 degrees, limited by tight hamstrings. Neurological: Positive: Alert, Muscle Tone Normal Psychological Exam: Normal Skin Exam: Normal, Other - scar medial calf on the right leg. Diagnostics - Laboratory Lab Results: UA without blood or white cells. Back Pain Course/Dx - Course Course Of Treatment: add nsaid to regimen, continue tramadol. Encouraged heat and rest. - Differential Dx/Diagnosis Differential Diagnosis/HQI/PQRI: Herniated Disc, Strain, Sprain Provider Diagnosis: Low back strain Discharge ED - Sign-Out/Discharge Documenting (check all that apply): Patient Departure All imaging exams completed and their final reports reviewed: No Studies - Discharge Plan Condition: Stable Disposition: HOME Prescriptions: Naproxen [Naproxen 500 mg tab] 500 mg PO BID PRN #30 tablet. PRChika Reason: Pain - Moderate Patient Education Materials: Low Back Strain (ED), Lower Back Exercises (ED) Referrals: Cecilio Briones MD [Primary Care Provider] - - Billing Disposition and Condition Condition: STABLE Disposition: Home
== END 2019-04-04 11:34 | disposition home or self-care (01) ==
LOC: UCCORT 09:53
DX: S39.012A Strain of muscle, fascia and tendon of lower back, initial encounter (principal); X50.0XXA Overexertion from strenuous movement or load, initial encounter; Y93.89 Activity, other specified; Y92.89 Other specified places as the place of occurrence of the external cause; Y99.0 Civilian activity done for income or pay; Z87.891 Personal history of nicotine dependence
CPT/HCPCS: 81003; 99212; G0463

== ENCOUNTER 2019-05-22 11:10 | Emergency (ER) | payer BC, OTHER ==
[2019-05-22 11:47] VITALS: BP 159/87
--- NOTE | 2019-05-22 12:37 | UC ---
Respiratory Complaint HPI - HPI Summary HPI Summary: 48-year-old male presents with 5 day history of nasal congestion, runny nose, sore throat, chest congestion, and a productive cough for yellow green sputum. Reports subjective fever and chills especially at night with body aches. Denies ear pain, dysphagia, chest pain, palpitations, abdominal pain, nausea, vomiting, diarrhea. - History of Current Complaint Chief Complaint: UCRespiratory Stated Complaint: CONGESTION Time Seen by Provider: 05/22/19 12:08 Hx Obtained From: Patient Pain Intensity: 8 - Allergies/Home Medications Allergies/Adverse Reactions: Allergies Allergy/AdvReac Type Severity Reaction Status Date / Time No Known Allergies Allergy Verified 05/22/19 11:40 Home Medications: Home Medications Medical Marijuanna 0.8 teasp PO Q1H PRN 05/22/19 [History] PMH/Surg Hx/FS Hx/Imm Hx Previously Healthy: Yes GI/ History: Gastroesophageal Reflux - Surgical History Surgical History: Yes Surgery Procedure, Year, and Place: left arm fracture that was repaired surgically. Right lower leg fasciotomy. right leg nerve entrapment surgery - Family History Known Family History: Positive: Cardiac Disease, Diabetes - mother - Social History Occupation: Employed Full-time Lives: With Family Alcohol Use: None Substance Use Type: Marijuana, Prescribed Smoking Status (MU): Former Smoker Type: Cigarettes Amount Used/How Often: 1/2 PPD Length of Time of Smoking/Using Tobacco: 24 Years Have You Smoked in the Last Year: No When Did the Patient Quit Smoking/Using Tobacco: ~2014 Household Exposure Type: Cigarettes - Immunization History Most Recent Influenza Vaccination: Not the 2016/2017 Season Most Recent Pneumonia Vaccination: N/A Review of Systems All Other Systems Reviewed And Are Negative: Yes Constitutional: Positive: Fever - Subjective, Chills Skin: Negative: Rash Eyes: Negative: Drainage, Eye Redness ENT: Positive: Sore Throat, Nasal Discharge, Sinus Congestion. Negative: Ear Ache, Sinus Pain/Tenderness Respiratory: Positive: Cough. Negative: Shortness Of Breath Cardiovascular: Negative: Palpitations, Chest Pain Gastrointestinal: Negative: Abdominal Pain, Vomiting, Diarrhea, Nausea Genitourinary: Positive: Negative Musculoskeletal: Positive: Myalgia Neurological: Positive: Negative Is Patient Immunocompromised?: No Physical Exam - Summary Physical Exam Summary: GENERAL APPEARANCE: Well developed, well nourished, alert and cooperative, and appears to be in no acute distress. EYES: Conjunctiva clear. No drainage. EARS: External auditory canals with mild-moderate soft cerumen. Bilateral tympanic membranes opaque with good cone of light, hearing grossly intact. NOSE: Mild-moderate nasal discharge. No nasal discharge. THROAT: Pharyngeal cobblestoning. No tonsilar inflammation, swelling, exudate, or lesions. Uvula midline. NECK: Neck supple, non-tender without lymphadenopathy. CARDIAC: Normal S1 and S2. No S3, S4 or murmurs. Rhythm is regular. There is no peripheral edema, cyanosis or pallor. Extremities are warm and well perfused. Capillary refill is less than 2 seconds. Peripheral pulses intact. LUNGS: Clear to auscultation without rales, rhonchi, wheezing or diminished breath sounds. ABDOMEN: Positive bowel sounds. Soft, nondistended, nontender. No guarding or rebound. No masses or hepatosplenomegally. MUSKULOSKELETAL: ROM intact to all extremities. No joint erythema or tenderness. Normal muscular development. Normal gait. SKIN: Skin normal color, texture and turgor with no lesions or eruptions. Triage Information Reviewed: Yes Vital Signs: Initial Vital Signs Temp 99.7 F 05/22/19 11:43 Pulse 96 05/22/19 11:43 Resp 20 05/22/19 11:43 BP 159/87 05/22/19 11:43 Pulse Ox 100 05/22/19 11:43 Vital Signs Reviewed: Yes Respiratory Course/Dx - Course Course Of Treatment: 48-year-old male presents with 5 day history of nasal congestion, runny nose, sore throat, chest congestion, and a productive cough for yellow green sputum. Reports subjective fever and chills especially at night with body aches. Denies ear pain, dysphagia, chest pain, palpitations, abdominal pain, nausea, vomiting, diarrhea. Afebrile. Hypertensive of his vital signs stable. Patient had mild/moderate nasal congestion, pharyngeal cobblestoning, no tonsillar swelling or exudate, no cervical lymphadenopathy, clear bilateral breath sounds, and otherwise unremarkable exam. I discussed with the patient that his symptoms were likely viral in origin intact antibiotics would likely have no effect on his symptoms. Reviewed the risks involved with treating with antibiotics and patient states that he would prefer a course of antibiotics at this time. We'll start him on a course of azithromycin and provide him with Tesjoelleon Perles one capsule every 8 hours as needed for cough as well as symptomatic treatment. He is to follow-up with his primary care provider in 5- 7 days if symptoms are not improving. Anticipatory guidance warning signs reviewed with the patient. Verbalized understanding and agrees with plan of care. - Differential Dx/Diagnosis Differential Diagnosis/HQI/PQRI: Bronchitis, Lower Resp Infection, Other - URI Provider Diagnosis: Upper respiratory infection with cough and congestion Discharge ED - Sign-Out/Discharge Documenting (check all that apply): Patient Departure All imaging exams completed and their final reports reviewed: No Studies - Discharge Plan Condition: Stable Disposition: HOME Prescriptions: Azithromyxin LUIS (NF) [Z-Luis (Zithromax) 250 mg tabs #6] 2 tab PO .TODAY, THEN 1 DAILY #6 tab Benzonatate CAP* [Tessalon 100 MG CAP*] 100 mg PO TID PRN #21 cap PRN Reason: Cough Patient Education Materials: Upper Respiratory Infection (ED) Referrals: Cecilio Briones MD [Primary Care Provider] - 5 Days Additional Instructions: Your history and exam are consistent with an upper respiratory infection with cough. Start azithromycin 2 tabs today then 1 tab a day for next 4 days. Use Tessalon Perles 1 capsule every 8 hours as needed for cough. Get plenty of rest. Drink plenty of fluids. Use an over the counter decongestant such as Sudafed for the nasal congestion. Take over the counter acetaminophen (Tylenol) or ibuprofen (Advil, Motrin) according to directions as needed for pain or fever. Use salt water gargles several times a day if you have a sore throat. You may also use Chloraseptic spray or Cepacol lonzenges according to directions which contain a numbing medication and can provide some temporary relief from your sore throat. Follow up with your primary care provider in 5-7 days if symptoms persist. Seek immediate medical attention in the emergency room if you have fever greater than 100.5 F despite taking acetaminophen or ibuprofen, have chest pain , difficulty breathing, are unable to swallow, or have any worsening of symptoms. - Billing Disposition and Condition Condition: STABLE Disposition: Home
== END 2019-05-22 12:42 | disposition home or self-care (01) ==
LOC: UCCORT 11:10
DX: J06.9 Acute upper respiratory infection, unspecified (principal); R05 Cough; R09.81 Nasal congestion; Z87.891 Personal history of nicotine dependence
CPT/HCPCS: 99212; G0463

== ENCOUNTER 2019-10-26 11:26 | Emergency (ER) | payer BC, OTHER ==
--- OUTSIDE RECORDS SUMMARY | 2019-10-26 11:34 | XMS REPORT | Continuity of Care Document ---
:1970 External Reference #:[id number] Author Name Hilda Jain NP (transmitted by agent of provider Iftikhar Sunshine) Address [address] [facility] [address] [place] [id number] Care Team Providers Name Role Phone Cecilio Briones MD - Family Medicine Care Team Information Cellophane Tester [phone] Cecilio Briones MD - Family Medicine Care Team Information Cellophane Tester Problems Description No Information Available Social History Type Date Description Comments Sex Unknown Tobacco Use Start: Unknown End: Former Cigarette Smoker Unknown Smoking Status Reviewed: 02/05/19 Former Cigarette Smoker ETOH Use Denies alcohol use Tobacco Use Start: Unknown End: Patient is a former smoker Unknown Exercise Type/Frequency Exercises sporadically Allergies, Adverse Reactions, Alerts Description No Known Drug Allergies Medications Active Medications SIG Qnty Indications Ordering Date Provider Azithromycin 2 tabs x1 day, 1 6tabs J01.90 Hilda 07/31/2019 250mg tab x 4days JACKIE Jain Tablets Guaifenesin-Codeine 5-10 milliliters at 120ml J01.90 Hilda 07/31/2019 bedtime JACKIE Jain 100-10mg/5ML Syrup Azithromycin 2 tabs x1 day, 1 6tabs Hilda 06/07/2019 250mg tab x 4days JACKIE Jain Tablets Albuterol Sulfate 2 puffs every 4 17gm Hilda 06/07/2019 HFA hours as needed JACKIE Jain 108(90Base) mcg/Act Aerosol Naproxen 1 by mouth twice a 60tabs T79.A21D Aidan Phillip, 08/05/2018 375mg day M.D. Tablets Ibuprofen one by mouth three 90tabs T79.A21D Aidan Phillip, 06/03/2018 600mg times a day-uses as M.D. Tablets needed Gabapentin 3 caps by mouth at Unknown 300mg bed time Capsules Prilosec OTC 1 by mouth every Unknown 20mg other day Tablets DR Tramadol HCL ER Unknown (Biphasic) 100mg Tablets ER 24HR Gabapentin once a day Unknown 300mg Capsules Medications Administered in Office Medication SIG Qnty Indications Ordering Provider Date Celestone 3 mg and 3mg Aidan Leyva MD 12/11/2018 Injection Depomedrol 40MG Aidan Phillip M.D. 09/23/2017 Injection Immunizations Description No Information Available Vital Signs Date Vital Result Comment 07/31/2019 11:31am Heart Rate 107 /min Body Temperature 98.7 F Pain Level 7 O2 % BldC Oximetry 95 % 06/07/2019 3:32pm Heart Rate 91 /min Respiratory Rate 22 /min Body Temperature 99.5 F Pain Level 3 O2 % BldC Oximetry 97 % Results Description No Information Available Procedures Description No Information Available Medical Devices Description No Information Available Encounters Type Date Location Provider Dx Diagnosis Office Visit 07/31/2019 [facility] Hilda J01.90 Acute sinusitis, 11:28a Walk-in at [facility]ian NP unspecified Drugs Office Visit 06/07/2019 [facility] Hilda J20.9 Acute bronchitis, 3:21p Walk-in at [facility] Jain NP unspecified Drugs J01.90 Acute sinusitis, unspecified Assessments Date Code Description Provider 07/31/2019 J01.90 Acute sinusitis, unspecified Hilda Jain NP 06/07/2019 J20.9 Acute bronchitis, unspecified Hilda Jain NP 06/07/2019 J01.90 Acute sinusitis, unspecified Hilda Jain NP Plan of Treatment 07/31/2019 - Hilda Jain NPJ01.90 Acute sinusitis, unspecifiedNew Medication:Azithromycin 250 mg - 2 tabs x1 day, 1 tab x 4daysGuaifenesin- Codeine 100-10 mg/5ML - 5-10 milliliters at bedtimeRecommendations:Take the medication as prescribed. Humdify the air at night salt water gargles. do not drive with the cough medication. follow up with your PCP if not improving. Functional Status Description No Information Available Mental Status Description No Information Available Referrals Description No Information Available
--- OUTSIDE RECORDS SUMMARY | 2019-10-26 11:34 | XMS REPORT | Continuity of Care Document ---
:1970 External Reference #:[id number] Author Name Hilda Jain NP (transmitted by agent of provider Iftikhar Sunshine) Address [address] [facility] [address] [place] [phone] Care Team Providers Name Role Phone Cecilio Briones MD - Family Medicine Care Team Information Network Security Officer [phone] Cecilio Briones MD - Family Medicine Care Team Information Network Security Officer [phone] Problems Description No Information Available Social History [...] Location Provider Dx Diagnosis Office Visit 07/31/2019 [facility] Hilda J01.90 Acute sinusitis, 11:28a Walk-in at [facility] Jain NP unspecified Drugs Office Visit 06/07/2019 [facility] Hilda J20.9 Acute bronchitis, 3:21p Walk-in at [...]
--- OUTSIDE RECORDS SUMMARY | 2019-10-26 11:34 | XMS REPORT | Continuity of Care Document ---
:1970 External Reference #:[id number] Author Name Hilda Jain NP (transmitted by agent of provider Iftikhar Sunshine) Address [address] [facility] [address] [place] [id number] Care Team Providers Name Role Phone Cecilio Briones MD - Family Medicine Care Team Information Asset Protection Professional [phone] Cecilio Briones MD - Family Medicine Care Team Information Asset Protection Professional Problems Description No Information Available Social History [...] Location Provider Dx Diagnosis Office Visit 07/31/2019 [facility] Hilda J01.90 Acute sinusitis, 11:28a Walk-in at [facility] Jain NP unspecified Drugs Office Visit 06/07/2019 [facility] Hilda J20.9 Acute bronchitis, 3:21p Walk-in at [...]
[2019-10-26 11:41] VITALS: BP 146/85
--- NOTE | 2019-10-26 11:55 | UC ---
Dental HPI - HPI Summary HPI Summary: dental pain / abscess right lower back teeth x 1 day pain is sever 10 out 10 , worse with cold and chewing / better with pain meds no known injury , no discharge , no fever, no chills - History of Current Complaint Chief Complaint: UCDentalProblem Stated Complaint: DENTAL CONCERN Time Seen by Provider: 10/26/19 11:32 Hx Obtained From: Patient Onset/Duration: Gradual Onset, Lasting Days - 1, Still Present Severity: Severe Pain Intensity: 10 Aggravating Factor(s): Cold, Chewing Alleviating Factor(s): OTC Meds Dental: 1 - pain / abscess - Allergies/Home Medications Allergies/Adverse Reactions: Allergies Allergy/AdvReac Type Severity Reaction Status Date / Time No Known Allergies Allergy Verified 10/26/19 11:41 Home Medications: Home Medications Gabapentin CAP(*) [Neurontin 300 CAP(*)] 2 - 3 cap PO BEDTIME 11/13/18 [History Confirmed 10/26/19] Tramadol ER(NF) [Ultram HCl ER(NF)] 100 mg PO QAM 05/19/19 [History Confirmed ] Medical Marijuanna 0.8 teasp PO Q1H PRN 05/22/19 [History Confirmed 10/26/19] Clindamycin Cap(NF) [Clindamycin Cap 300 mg Cap(NF)] 300 mg PO Q6H #40 cap 10/25 [Rx] PMH/Surg Hx/FS Hx/Imm Hx - Additional Past Medical History Additional PMH: left arm fracture that was repaired surgically Right lower leg fasciotomy right leg nerve entrapment surgery - Surgical History Surgical History: Yes Surgery Procedure, Year, and Place: left arm fracture that was repaired surgically. Right lower leg fasciotomy. right leg nerve entrapment surgery - Family History Known Family History: Positive: Cardiac Disease, Diabetes - mother - Social History Alcohol Use: None Substance Use Type: None Smoking Status (MU): Former Smoker Type: Cigarettes Amount Used/How Often: 1/2 PPD Length of Time of Smoking/Using Tobacco: 24 Years Have You Smoked in the Last Year: No When Did the Patient Quit Smoking/Using Tobacco: ~2013 Household Exposure Type: Cigarettes - Immunization History Most Recent Influenza Vaccination: Not the 2015/2016 Season Most Recent Pneumonia Vaccination: N/A Review of Systems All Other Systems Reviewed And Are Negative: Yes Constitutional: Negative: Fever, Chills, Fatigue Skin: Positive: Negative Eyes: Positive: Negative ENT: Positive: Dental Pain Is Patient Immunocompromised?: No Physical Exam Triage Information Reviewed: Yes Appearance: Well-Appearing, No Pain Distress, Well-Nourished Vital Signs: Initial Vital Signs Temp 98.2 F 10/26/19 11:36 Pulse 82 10/26/19 11:36 Resp 18 10/26/19 11:36 BP 146/85 10/26/19 11:36 Pulse Ox 97 10/26/19 11:36 Vital Signs Reviewed: Yes Eye Exam: Normal Eyes: Positive: Conjunctiva Clear ENT: Positive: Normal ENT inspection, Hearing grossly normal, Pharynx normal Dental: Positive: Percussion Tenderness @ - #30, Abscess @ - #30 Neck: Positive: Supple, Nontender, No Lymphadenopathy Respiratory: Positive: Chest non-tender, Lungs clear, Normal breath sounds Cardiovascular: Positive: RRR, No Murmur, Pulses Normal Skin Exam: Normal Dental Complaint Course/Dx - Differential Dx/Diagnosis Provider Diagnosis: Dental abscess Discharge ED - Sign-Out/Discharge Documenting (check all that apply): Patient Departure All imaging exams completed and their final reports reviewed: No Studies - Discharge Plan Condition: Stable Disposition: HOME Prescriptions: Clindamycin Cap(NF) [Clindamycin Cap 300 mg Cap(NF)] 300 mg PO Q6H #40 cap Patient Education Materials: Dental Abscess (ED) Referrals: Cecilio Briones MD [Primary Care Provider] - If Needed - Billing Disposition and Condition Condition: STABLE Disposition: Home
== END 2019-10-26 11:55 | disposition home or self-care (01) ==
LOC: UCCORT 11:26
DX: K04.7 Periapical abscess without sinus (principal); Z87.891 Personal history of nicotine dependence
CPT/HCPCS: 99212; G0463